=== PATIENT | male | born 1940 | race Caucasian/White ===

== ENCOUNTER → 2017-02-16 | Outpatient (CLI) | payer BC ==
[~2017-02-16] MED LIST: LISI5TAB3 PO; LRTUNK PO
[2017-02-16 12:41] LABS: BASO % 0.6 %; BASO ABS # 0.05 K/uL (0-0.2); COMPLETE YES; EOS % 2.5 %; HEMATOCRIT 49.3 % (42-52); IG% 1.7 %; LYMPH % 20.5 %; LYMPH ABS # 1.71 K/uL (1.2-3.4); MEAN CELL VOLUME 94.4 fL (80-100); MEAN CORPUSCULAR HEMOGLOBIN 33.1 pg (25-34); MEAN CORPUSCULAR HGB CONC 35.1 g/dl (32-36); MEAN PLATELET VOLUME 11.3 fL (7.4-10.4); NEUT % 65.7 %; PLATELET COUNT 226 K/uL (130-400); RED BLOOD COUNT 5.22 M/uL (4.7-6.1); WHITE BLOOD COUNT 8.33 K/uL (4.8-10.8)
[2017-02-16 12:59] LABS: ALT/SGPT 23 U/L (12-78); AST/SGOT 16 U/L (15-37); BLOOD UREA NITROGEN 17 mg/dl (7-18); BUN/CREATININE RATIO 18.3 (10-20); CALCIUM 8.9 mg/dl (8.5-10.1); CARBON DIOXIDE 28 mmol/L (21-32); CHLORIDE 105 mmol/L (98-107); CREATININE 0.93 mg/dl (0.60-1.40); GLUCOSE 109 mg/dl (70-99); POTASSIUM 4.1 mmol/L (3.5-5.1); SODIUM 138 mmol/L (136-145)
[2017-02-16 13:04] LABS: ALB/GLOB RATIO 1.2 (0.9-2); ALKALINE PHOSPHATASE 71 U/L (45-117); CHOLESTEROL 216 mg/dl (0-200); CHOLESTEROL/HDL RATIO 4.3; HDL CHOLESTEROL 50 mg/dl; TRIGLYCERIDES 114 mg/dl (0-150); VERY LOW DENSITY LIPOPROT CALC 23 mg/dl
[2017-02-16 13:09] LABS: ESTIMATED AVERAGE GLUCOSE 108 mg/dl; HA1C FLAG Normal (Normal)
== END | disposition home or self-care (01) ==
LOC: C.LABSPEC 12:12
PROVIDERS: ATTEND Internal Medicine
DX: R73.9 Hyperglycemia, unspecified (principal); E78.5 Hyperlipidemia, unspecified; I10 Essential (primary) hypertension

== ENCOUNTER → 2017-03-24 | Outpatient (CLI) | payer BC ==
[~2017-03-24] MED LIST changes: +BIMA0.01 OPB; +LISI10TA PO
== END | disposition home or self-care (01) ==
LOC: C.LABSPEC 14:54
PROVIDERS: ATTEND Internal Medicine
DX: Z12.11 Encounter for screening for malignant neoplasm of colon (principal)

== ENCOUNTER → 2017-04-19 | Day surgery (SDC) | payer BC ==
[2017-03-28 09:51] VITALS: Ht 175.3 cm; Wt 90.9 kg
--- NOTE | 2017-04-17 16:50 | History and Physical ---
History & Physical Date of Service Apr 17, 2017. History & Physical ADMISSION DATE: 04/19/2017 CHIEF COMPLAINT: 76-year-old male scheduled to undergo left cataract surgery on 2016. He is also scheduled for a right cataract surgery to be done on 2016 PRESENT ILLNESS: patient with decreased vision. He is treated for glaucoma. He has markedly decreased vision in the left eye he has had a prior accident. He was recently evaluated. He has bilateral cataracts. He is scheduled to undergo surgery on both eyes as noted above. Otherwise she is in good medical condition. He was just seen in the office for his preoperative evaluation on 04/14/2017. He denied any headache. No dizziness no lightheadedness. Decreased vision as noted. He does wear glasses. Denies any earache sore throat or neck pain. No chest pain. No shortness of breath. No abdominal pain no nausea no vomiting. He does have an umbilical hernia. Nontender. he does have urinary problems. He does have an enlarged prostate. He does have urinary frequency and urgency. No pain in his extremities. PAST MEDICAL HISTORY: * arterial hypertension. He treated and controlled * Glaucoma. Treated with Lumigan * Hyperglycemia * Osteoarthritis * Urinary frequency and nocturia * Compression fracture of T3. Underwent biopsy and kyphoplasty in 2007 * cholecystectomy in the remote past * Known umbilical hernia SOCIAL HISTORY: he is . Does not smoke. No excessive alcohol. 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 Well nourished. No acute distress.weight 213.8 pounds , height 66 inches, BMI 34.51. VITAL SIGNS : Blood Pressure : 122/84, pulse 80 and regular, temperature 98.5. SKIN : Warm and dry. No rash. HEENT :Glaucoma as noted. Wears glasses. Upper dentures. NECK : Supple. No adenopathy. No thyromegaly. No JVD. Normal carotid pulses. No carotid bruit. CHEST : Normal HEART: Regular heart sounds without any murmur rub or gallop. PMI not displaced. LUNGS: Clear. Normal breath sounds. ABDOMEN: Soft nontender. No organomegaly or masses. Good bowel sounds.Surgical scar. Umbilical hernia BACK: No spine or CVA tenderness. EXTREMITIES : No edema clubbing or cyanosis. osteoarthritic changes. Decreased right dorsalis pedis pulse. Decreased left dorsalis pedis pulse. Left posterior tibialis pulse is absent NEUROLOGICAL EXAMINATION: He is alert and oriented. No deficits. ASSESSMENT: * bilateral cataracts. Patient is scheduled for surgery on the left eye on and subsequently on the right eye on 05/10/2017 * Glaucoma * Arterial hypertension * Osteoarthritis * Dysuria and urinary frequency * Obesity PLAN: * continuing the same medications * As far as his urinary symptomatology he is now willing to try the Flomax. Decided to wait until he is done with his bilateral cataract surgery in order to avoid the possibility of an intraoperative floppy iris syndrome. * his condition is stable . I do not see any contraindication to his anticipated surgical procedure.
[~2017-04-19] VITALS: Ht 175.3 cm; Wt 90.9 kg
[~2017-04-19] MED LIST changes: +500ML BSS 0.3ML EPI 1:1000PF IRRIG ONE; +ACETAMINOPHEN 325 MG TAB PO PRN; +AMVISC PLUS 0.8ML SYRINGE INT OCU ONE; +ATROPINE SULFATE 0.1 MG/ML 5ML SYR IV PRN; +BSS FLUSH ONE; +EpHEDrine SULFATE INJ 50 MG/ML AMP IV PRN; +EpINEphrine INJ 1MG/ML AMP 1 MG/ML AMP ONE; +LACTATED RINGER'S 1000ML 500 ML IV SCH; +LIDOCAINE 3.5% OPH GEL PER APPLICATION CHARGE ONE; +LIDOCAINE HCL 1% MPF 2 ML VIAL ONE; -LISI5TAB3 PO; -LRTUNK PO; +MIDAZOLAM HCL 1 MG/ML 2ML VIAL ONE; +POVIDONE-IODINE OP SOLN 30 ML BTL ONE; +PROPARACAINE 0.5% OP SOLN PER DROP CHARGE OPL SCH; +TOBRAMYCIN/DEXAMETHASONE OPH OINT PER APPLN CHARGE ONE
[2017-04-19] MEDS: PHENYLEPHRINE HCL 2.5% OP SOLN PER DROP CHARGE OPL SCH ×2 (10:34→10:39)
[2017-04-19] MEDS: TROPICAMIDE 1% OP SOLN PER DROP CHARGE OPL SCH ×2 (10:35→10:40)
[2017-04-19] MEDS: CYCLOPENTOLATE HCL 1% OP SOLN PER DROP CHARGE OPL SCH ×2 (10:36→10:41)
[2017-04-19] MEDS: KETOROLAC 0.5% OP SOLN PER DROP CHARGE OPL SCH ×2 (10:37→10:42)
[2017-04-19] MEDS: GATIFLOXACIN OP SOLN PER DROP CHARGE OPL SCH ×2 (10:38→10:48)
--- NOTE | 2017-04-19 11:07 | History & Physical Bridge - [place] ---
H&P Re-Evaluation Bridge Note: I have examined the patient, reviewed the History & Physical and in the interval since the performance of the History & Physical I have noted the following changes of clinical significance: No changes noted
--- NOTE | 2017-04-19 11:51 | Discharge Instructions-SurgCtr ---
Discharge Instructions Date of Service Apr 19, 2017. Visit Reason for Visit: Cataract Left Eye Discharge Discharge Diagnosis / Problem: cataract Discharge Goals Goal(s): Improve function Activity Recommendations Activity Limitations: per Instructions/Follow-up section Anesthesia . Post Anesthesia Instructions: If you have had General Anesthesia or IV Sedation: * Do not drive today. * Resume driving when surgeon permits. * Do not make important decisions or sign legal documents today. * Call surgeon for: 1. Temperature elevations greater than 101 degrees F. 2. Uncontrollable pain. 3. Excessive bleeding. 4. Persistent nausea and vomiting. 5. Medication intolerance (nausea, vomiting or rash). * For nausea and vomiting use only clear liquids such as: tea, soda, bouillon until nausea subsides, then gradually increase diet as tolerated. * If you have any concerns or questions, call your surgeon's office. If physician is unavailable and it is an emergency, call 911 or go to the nearest emergency room. . Diet Recommendations Home Diet: resume previous diet Procedures Procedures Performed: Left Cataract Phacoemulsification With Intraocular Lens Implant Pending Studies Studies pending at discharge: no Medical Emergencies . Who to Call and When: Medical Emergencies: If at any time you feel your situation is an emergency, please call 911 immediately. . Non-Emergent Contact Non-Emergency issues call your: Patient Registration Representative . . "Provider Documentation" section prepared by Ahmet Segura. .
--- NOTE | 2017-04-19 11:52 | [facility] Operative Report ---
Operative Report Date of Service Apr 19, 2017. Operative Report 1. PREOPERATIVE DIAGNOSIS: Cataract of the left eye. 2. POSTOPERATIVE DIAGNOSIS: Same. 3. PROCEDURE: Phacoemulsification with intraocular lens implantation of the left eye. SURGEON: Dr. Ahmet Segura. ANESTHESIA: Topical Lidocaine gel, 1% Non- Preserved intracameral Lidocaine, and monitored intravenous sedation. INDICATIONS FOR THE PROCEDURE: The patient is a 76 - year-old male with a history of cataract of the left eye causing significant visual impairment. The details of the proposed procedure were explained to the patient who asked appropriate questions and following discussion of all risks, benefits and alternatives agreed to have the procedure done. 4. OPERATION AND FINDINGS: DESCRIPTION OF PROCEDURE: After informed consent was obtained, the patient was brought to the Operating Room at the [facility]. The patient was placed in a supine position and then the left eye was prepped and draped in the usual sterile fashion for intraocular surgery. A drop of topical Lidocaine gel was placed in the operative eye. A wire lid speculum was then placed in the fornices. A corneal paracentesis was then created temporally. The Non-Preserved Lidocaine was then instilled into the anterior chamber. The anterior chamber was then pressurized with viscoelastic. A 2.0 mm clear corneal incision was then created temporally. A cystotome was inserted into the anterior chamber and used to create a tear in the anterior lens capsule. This capsular tear was then used to create a small flap and the flap was dragged in a counterclockwise direction in order to create a continuous curvilinear capsulorrhexis. Hydrodissection was accomplished with balanced salt solution. Phacoemulsification of the lens nucleus was then performed in a standard [id number] technique. The phaco time was 25 seconds with an average power of 19 %. The remaining cortical material was removed using irrigation aspiration. The capsular bag was then filled with viscoelastic. A Bausch [employer] Lomb MI60L +29.0 diopters lens was then loaded into the injector and injected into the capsular bag. The remaining viscoelastic was removed with the irrigation aspiration handpiece. The wound was hydrated and then checked and found to be watertight. The intraocular pressure was checked and found to be adequate. The wire lid speculum was removed and the patient's face was cleaned and dried. TobraDex ointment was placed in the inferior fornix. The patient was discharged to the Recovery Room having tolerated the procedure well. There were no complications. The patient will be seen tomorrow in the office for follow-up. I attest to the content of the Intraoperative Record and any orders documented therein. Any exceptions are noted below.
[2017-04-19 12:02] VITALS: TEMP 36.8
--- NOTE | 2017-04-19 12:18 | Anesthesia Progress Nt - [facility] ---
Anesthesia Post Op Note Date & Time Apr 19, 2017 at 12:18 Vital Signs Pain Intensity: 0 Vital Signs Past 12 Hours Date Time Temp Pulse Resp B/P (MAP) Pulse Ox O2 Delivery O2 Flow Rate FiO2 04/19/17 12:02 36.8 74 16 116/83 (94) 94 Room Air 04/19/17 10:31 36.7 67 18 118/80 (93) 94 Room Air Notes Mental Status: alert / awake / arousable, participated in evaluation Pt Amnestic to Procedure: Yes Nausea / Vomiting: adequately controlled Pain: adequately controlled Airway Patency, RR, SpO2: stable & adequate BP & HR: stable & adequate Hydration State: stable & adequate Anesthetic Complications: no major complications apparent
[2017-04-19 12:26] VITALS: BP 135/89; PULSE 66; O2SAT 96
== END | disposition home or self-care (01) ==
LOC: X.SURG 09:48
PROVIDERS: ATTEND Ophthalmology
DX: H26.9 Unspecified cataract (principal); M19.90 Unspecified osteoarthritis, unspecified site; I10 Essential (primary) hypertension; H40.9 Unspecified glaucoma; Z90.49 Acquired absence of other specified parts of digestive tract; Z79.82 Long term (current) use of aspirin; E66.9 Obesity, unspecified; Z68.34 Body mass index [BMI] 34.0-34.9, adult; Z90.89 Acquired absence of other organs

== ENCOUNTER → 2017-05-10 | Day surgery (SDC) | payer BC ==
[2017-04-26 14:08] VITALS: Ht 175.3 cm; Wt 90.9 kg
[~2017-05-10] VITALS: Ht 175.3 cm; Wt 90.9 kg
[~2017-05-10] MED LIST changes: +OCUCOAT 1 ML SOLN IO ONE; -PROPARACAINE 0.5% OP SOLN PER DROP CHARGE OPL SCH; +PROPARACAINE 0.5% OP SOLN PER DROP CHARGE OPR SCH
[2017-05-10] MEDS: PHENYLEPHRINE HCL 2.5% OP SOLN PER DROP CHARGE OPR SCH ×2 (10:03→10:15)
[2017-05-10] MEDS: TROPICAMIDE 1% OP SOLN PER DROP CHARGE OPR SCH ×2 (10:04→10:15)
[2017-05-10] MEDS: CYCLOPENTOLATE HCL 1% OP SOLN PER DROP CHARGE OPR SCH ×2 (10:05→10:16)
[2017-05-10] MEDS: KETOROLAC 0.5% OP SOLN PER DROP CHARGE OPR SCH ×2 (10:06→10:11)
[2017-05-10] MEDS: GATIFLOXACIN OP SOLN PER DROP CHARGE OPR SCH ×2 (10:07→10:19)
--- NOTE | 2017-05-10 11:13 | Discharge Instructions-SurgCtr ---
Discharge Instructions Date of Service May 10, 2017. Visit Reason for Visit: Cataract Right Eye Discharge Discharge Diagnosis / Problem: cataract Discharge Goals Goal(s): Improve function Activity Recommendations Activity Limitations: per Instructions/Follow-up section Anesthesia . Post Anesthesia Instructions: If you have had General Anesthesia or IV Sedation: * Do not drive today. * Resume driving when surgeon permits. * Do not make important decisions or sign legal documents today. * Call surgeon for: 1. Temperature elevations greater than 101 degrees F. 2. Uncontrollable pain. 3. Excessive bleeding. 4. Persistent nausea and vomiting. 5. Medication intolerance (nausea, vomiting or rash). * For nausea and vomiting use only clear liquids such as: tea, soda, bouillon until nausea subsides, then gradually increase diet as tolerated. * If you have any concerns or questions, call your surgeon's office. If physician is unavailable and it is an emergency, call 911 or go to the nearest emergency room. . Diet Recommendations Home Diet: resume previous diet Pending Studies Studies pending at discharge: no Medical Emergencies . Who to Call and When: Medical Emergencies: If at any time you feel your situation is an emergency, please call 911 immediately. . Non-Emergent Contact Non-Emergency issues call your: Local Delivery Truck Driver . . "Provider Documentation" section prepared by Ahmet Segura. .
--- NOTE | 2017-05-10 11:14 | [facility] Operative Report ---
Operative Report Date of Service May 10, 2017. Operative Report 1. PREOPERATIVE DIAGNOSIS: Cataract of the right eye. 2. POSTOPERATIVE DIAGNOSIS: Same. 3. PROCEDURE: Phacoemulsification with intraocular lens implantation of the right eye. SURGEON: Dr. Ahmet Segura. ANESTHESIA: Topical Lidocaine gel, 1% Non- Preserved intracameral Lidocaine, and monitored intravenous sedation. INDICATIONS FOR THE PROCEDURE: The patient is a 76 - year-old male with a history of cataract of the right eye causing significant visual impairment. The details of the proposed procedure were explained to the patient who asked appropriate questions and following discussion of all risks, benefits and alternatives agreed to have the procedure done. 4. OPERATION AND FINDINGS: DESCRIPTION OF PROCEDURE: After informed consent was obtained, the patient was brought to the Operating Room at the [facility]. The patient was placed in a supine position and then the right eye was prepped and draped in the usual sterile fashion for intraocular surgery. A drop of topical Lidocaine gel was placed in the operative eye. A wire lid speculum was then placed in the fornices. A corneal paracentesis was then created temporally. The Non-Preserved Lidocaine was then instilled into the anterior chamber. The anterior chamber was then pressurized with viscoelastic. A 2.0 mm clear corneal incision was then created temporally. A cystotome was inserted into the anterior chamber and used to create a tear in the anterior lens capsule. This capsular tear was then used to create a small flap and the flap was dragged in a counterclockwise direction in order to create a continuous curvilinear capsulorrhexis. Hydrodissection was accomplished with balanced salt solution. Phacoemulsification of the lens nucleus was then performed in a standard [id number]-tfk-[id number] technique. The phaco time was 26 seconds with an average power of 12 %. The remaining cortical material was removed using irrigation aspiration. The capsular bag was then filled with viscoelastic. A Bausch & Lomb MI60L +20.0 diopters lens was then loaded into the injector and injected into the capsular bag. The remaining viscoelastic was removed with the irrigation aspiration handpiece. The wound was hydrated and then checked and found to be watertight. The intraocular pressure was checked and found to be adequate. The wire lid speculum was removed and the patient's face was cleaned and dried. TobraDex ointment was placed in the inferior fornix. The patient was discharged to the Recovery Room having tolerated the procedure well. There were no complications. The patient will be seen tomorrow in the office for follow-up. I attest to the content of the Intraoperative Record and any orders documented therein. Any exceptions are noted below.
--- NOTE | 2017-05-10 11:41 | Anesthesia Progress Nt - [facility] ---
Anesthesia Post Op Note Date & Time May 10, 2017 at 11:41 Vital Signs Pain Intensity: 0 Vital Signs Past 12 Hours Date Time Temp Pulse Resp B/P (MAP) Pulse Ox O2 Delivery O2 Flow Rate FiO2 05/10/17 11:12 36.7 62 16 113/79 (90) 97 Room Air 05/10/17 09:48 36.8 80 16 130/88 (102) 96 Room Air Notes Mental Status: alert / awake / arousable, participated in evaluation Pt Amnestic to Procedure: Yes Nausea / Vomiting: adequately controlled Pain: adequately controlled Airway Patency, RR, SpO2: stable & adequate BP & HR: stable & adequate Hydration State: stable & adequate Anesthetic Complications: no major complications apparent
[2017-05-10 11:48] VITALS: BP 115/83; PULSE 64; TEMP 36.6; O2SAT 96
== END | disposition home or self-care (01) ==
LOC: X.SURG 08:39
PROVIDERS: ATTEND Ophthalmology
DX: H26.9 Unspecified cataract (principal); H40.9 Unspecified glaucoma; I10 Essential (primary) hypertension; K21.9 Gastro-esophageal reflux disease without esophagitis; E66.9 Obesity, unspecified; M19.90 Unspecified osteoarthritis, unspecified site; Z79.82 Long term (current) use of aspirin; Z79.899 Other long term (current) drug therapy

== ENCOUNTER → 2017-08-17 | Outpatient (CLI) | payer BC ==
[~2017-08-17] MED LIST changes: -500ML BSS 0.3ML EPI 1:1000PF IRRIG ONE; -ACETAMINOPHEN 325 MG TAB PO PRN; -AMVISC PLUS 0.8ML SYRINGE INT OCU ONE; -ATROPINE SULFATE 0.1 MG/ML 5ML SYR IV PRN; -BSS FLUSH ONE; -EpHEDrine SULFATE INJ 50 MG/ML AMP IV PRN; -EpINEphrine INJ 1MG/ML AMP 1 MG/ML AMP ONE; -LACTATED RINGER'S 1000ML 500 ML IV SCH; -LIDOCAINE 3.5% OPH GEL PER APPLICATION CHARGE ONE; -LIDOCAINE HCL 1% MPF 2 ML VIAL ONE; -MIDAZOLAM HCL 1 MG/ML 2ML VIAL ONE; -OCUCOAT 1 ML SOLN IO ONE; -POVIDONE-IODINE OP SOLN 30 ML BTL ONE; -PROPARACAINE 0.5% OP SOLN PER DROP CHARGE OPR SCH; -TOBRAMYCIN/DEXAMETHASONE OPH OINT PER APPLN CHARGE ONE
[2017-08-17 13:26] LABS: BLOOD UREA NITROGEN 19 mg/dl (7-18); CALCIUM 8.9 mg/dl (8.5-10.1); CARBON DIOXIDE 29 mmol/L (21-32); CHOLESTEROL 206 mg/dl (0-200); CREATININE 0.98 mg/dl (0.60-1.40); GLUCOSE 100 mg/dl (70-99); POTASSIUM 4.2 mmol/L (3.5-5.1); SODIUM 136 mmol/L (136-145)
[2017-08-17 13:35] LABS: HEMOGLOBIN A1C 5.6 % (4.5-5.6)
[2017-08-17 13:36] LABS: LDL CHOLESTEROL (DIRECT) 134 mg/dl
== END | disposition home or self-care (01) ==
LOC: C.LABSPEC 12:45
PROVIDERS: ATTEND Internal Medicine
DX: I10 Essential (primary) hypertension (principal); E78.5 Hyperlipidemia, unspecified; R73.9 Hyperglycemia, unspecified; R53.83 Other fatigue

== ENCOUNTER 2023-01-11 06:45 | Observation (INO) ==
--- NOTE | 2023-01-11 07:23 | History & Physical Bridge Note ---
Date of Service January 11, 2023 History & Physical Bridge Note I have examined the patient, reviewed the History & Physical and in the interval since the performance of the History & Physical I have noted the following changes of clinical significance: no changes noted
--- NOTE | 2023-01-11 07:24 | Pre Anesthesia Assessment ---
Date of Service January 11, 2023 Pre Sedation Assessment Cardiovascular RRR, no murmur, no edema Respiratory normal respiratory effort, lungs clear to auscultation Pre-Sedation Airway Assessment Smoking Status: Never smoker Hx Sleep Apnea: No Hx Difficult Intubation: No Short, Thick Neck: No Thyromental Distance: > or= 3.5 Finger Breadths Oral Cavity: + WNL Mallampati Class: III ASA: ASA3 Procedure Planning Contraindications for Sedation: none Current Medications Reviewed: Yes Notes The planned sedation has been discussed with the patient. Informed Consent was obtained. I have identified the patient, determined the appropriateness of sedation and have assessed the patient immediately prior to the procedure. All medicine(s) and interventions are by my order.
[2023-01-11] MEDS ORDERED: HEPARIN (PORCINE) 1000 UNIT/ML 10 ML (CATH LAB USE ONLY) ONE ×2 (07:38→08:54)
[2023-01-11] MEDS ORDERED: MIDAZOLAM HCL 1 MG/ML 2ML VIAL ONE ×2 (07:38→08:56)
[2023-01-11] MEDS ORDERED: niCARdipine HCL INJ 2.5 MG/ML 10 ML AMP ONE (07:38)
[2023-01-11] MEDS ORDERED: fentaNYL citrate PF 100 MCG/2 ML VIAL ONE (07:39)
[2023-01-11] MEDS ORDERED: NITROGLYCERIN/D5W 100MCG/ML 20ML SYR ONE (07:39)
--- NOTE | 2023-01-11 10:33 | Post Anesthesia Assessment ---
Date of Service January 11, 2023 Post Sedation Assessment Vital Signs Temp Pulse Resp BP Pulse Ox O2 Del Method 01/11/23 10:05 52 L 18 136/75 96 Room Air 01/11/23 06:57 98.2 F 69 18 120/91 97 Room Air Recovery Score Activity: Moves 4 extremities Respiration: Deep Breath/Cough Circulation: +/-20% PreAnes Value Consciousness: Fully Awake Oxygen Saturation: > 92% On Room Air Post Anesthesia Score: 10 Discharge Sedation Level of Care: Fast Track Phase II Post Sedation Plan On clinical assessment, the patient appears to have tolerated the sedation without complications. Patient is recovering as anticipated. Patient will continue to be monitored by nursing and may be discharged when sedation discharge criteria are met per below protocol. Upon Completions of procedure up to 15 minutes continue every 5 minute vital signs and the P.A.R. score; then discharge to a Phase I or Fast Track to Phase II per the following guidelines: * Discharge Patient to appropriate Phase II area if PAR is 8 or greater or return to pre- procedure baseline. The post - procedure orders will be as directed. * If PAR score is less than 8 or not return to pre-procedure baseline then patient will follow Phase I monitoring till PAR is reached for Phase II. The Phase I may be done in procedure room or may call to secure a Phase I area. * If naloxone or flumazenil are used for reversal, hold in Phase I for continued monitoring from when last reversal dose was given for a minimum of 60 minutes or longer pending the nurse and/or physician discretion of patient condition before discharge to Phase II. Please call the Sedation Physician to re-evaluate and complete post-note for discharge to Phase II area. Do NOT discharge from procedure sedation or Phase 1 until post- sedation evaluation note is complete by procedure /sedation MD Sedation Discharge Instructions to be given to the patient at discharge to home.
--- NOTE | 2023-01-11 10:36 | Cardiac Catheterization ---
[facility] Data: Trauma Nurse Cardiac Status Clinical evaluation leading to the procedure CAD Presenation: Positive Stress Test Anginal Classification: CCS III Diagnostic Physicians Name: Paul Jamison MD Closure Device Recommendations: PCI without planned CABG Cardiac Cath Procedure Full Procedure Date January 11, 2023 Pre-Procedure Diagnosis Pre-Procedure Diagnosis: Positive Stress Test AUC Score AUC Score: 7 Post-Procedure Diagnosis Post-Procedure Diagnosis: Severe CAD, Successful PCI and Normal Intracardiac Pressures Procedure(s) Performed Procedure(s) Performed: Coronary Angiography, Left Heart Cath, Drug Eluting Stent, IVUS and Procedure (Intravascular lithotripsy) In Home Caregiver Paul Jamison MD Video Software Engineer(s) [place] Estimated Blood Loss Estimated Blood Loss: 10 Medication(s) Medication(s): Fentanyl, Heparin, Lidocaine 1%, Nicardipine, Nitroglycerin and Versed Summary of Findings Indication: Abnormal stress test, accelerating angina Access: 6 Fr right radial artery Catheters: [place], EBU 3.5 guide Findings: LM -normal caliber, 20% distal stenosis LAD -medium caliber, heavily calcified, 98% proximal stenosis with diffuse severe disease extending in the midsegment. Latemid and distal vessel with luminal irregularities and CHEPE II flow. LAD extends to apex. D1 100% ostial occlusion and fills distally retrograde via left to left collaterals. Ramusmedium caliber, 95% mid segment stenosis before bifurcation Circumflex -medium caliber, 20 to 30% mid segment. Medium OM 2 with luminal irregularities. RCA -dominant, large caliber, 20 to 30% ostial, distal luminal irregularities and 30% stenosis at bifurcation with PDA. RPDA with diffuse 20% disease. Small distal right PLB with focal 70% stenosis LVEDP -10 -- PCI -- Antithrombotic therapy: Heparin, clopidogrel Procedure: Left main cannulated with EBU 3.5 guide Pre-procedure flow CHEPE 2 Support Engineer 50 wire passed across lesion into distal vessel With the aid of a telescope support catheter eventually able to pass balloons to mid segment after repeated inflations with 1.5, 2.0 and 2.5 balloons. Mei IVUS catheter placed to mid LAD for vessel sizing. Revealed heavily calcified disease extending back to LAD ostium. Mild calcified disease in distal left main. Proximal to mid LAD further predilated with shockwave intravascular lithotripsy (3.0 balloon, 70 pulses) Dilated lesion stented with 3.0 x 38 mm [place] drug-eluting stent Stent post-dilated with 3.5 noncompliant balloon IC vasodilators administered for spasm Post procedure CHEPE 3 flow, stent well expanded with minimal residual stenosis and no apparent cardiac complications. Support Engineer 50 wire removed from LAD and redirected into ramus and across mid segment stenosis Mid ramus stenosis dilated with 2.5 balloon Ramus stented with 2.75 x 15 mm Independence drug-eluting stent across bifurcation and takeoff of superior branch Stent postdilated with stent balloon Post procedure CHEPE 3 flow, stent well expanded with minimal residual stenosis and no apparent cardiac complications. Arterial Closure: TR band Summary: 1. Severe multi-vessel coronary artery disease -98% heavily calcified proximal to mid LAD disease with CHEPE II distal flow 95% mid ramus 100% chronically occluded small D1 fills distally via left to left collaterals 70% small RPLB 2. Normal intracardiac filling pressure 3. Successful PCI of proximal to mid LAD with intravascular lithotripsy and single drug-eluting stent (3.0 x 38 mm [place]; postdilated with 3.5 NC. 4. Successful PCI of mid ramus with single drug-eluting stent (2.75 x 15 mm [place]). Recommendations: To PCU for continued monitoring Loaded with clopidogrel 600 mg in Trauma Nurse Continue dual-antiplatelet therapy for at least 6 months, consider extended P2Y12 with multivessel stenting Continue statin, and ASCVD risk factor modification Consult cardiac Rehab Hemodynamics Rest Ao:: 93/67/79 Final Ao: 114/66/87 LV: 98/10 Recommendations Recommendations: PCI without planned CABG Specimens Specimens: None Radiation Exposure (mGy) 4950 Contrast (mls) 130 Anesthesia Moderate 9083-4913 Procedural Complication(s) None Disposition PCU I attest to the content of the Intraoperative Record and any orders documented therein. Any exceptions are noted below. Syncing.NetG Card Cath Procedure Codes Cardiac Catheterization Procedure 1: Cardiovascular Cath Procedures: 81321 Coronaries and LHC (+/-LV) Therapeutic Services & Ancillary Procedure 1: Cardiovascular Tx and Anc Procedures: 18891 IV Ultrasound (Coronary or Graft) Moderate Sedation Procedure 1: Sedation/Anesthesia: 85079 Mod Sedation by the same physician;Init15 Min Child Age 5 & Up Procedure 2: Sedation/Anesthesia: 12887 Mod Sedation by the same physician; Ea [id number] Minutes Stenting Procedure 1: Cardiovascular Stent Procedures: 57686 Perc transcatheter placement of intracoronary stent(s), with ang Procedure 2: Cardiovascular Stent Procedures: 29159 Ea addl branch of a major coronary artery PG Care Time/CCT Total # of Minutes Spent Total Time Spent with Patient: Total time spent is greater than 50% in coordination of care (as documented) at patient's floor/unit and/or counseling patient:
[2023-01-11] MEDS ORDERED: ONDANSETRON INJ 2 MG/ML 2 ML VIAL IV PRN (10:38)
[2023-01-11] MEDS ORDERED: ACETAMINOPHEN 325 MG TAB PO PRN (10:38)
[2023-01-11] MEDS ORDERED: NITROGLYCERIN SL 0.4 MG/TAB TAB SL PRN (10:38)
[2023-01-11] MEDS ORDERED: CLOPIDOGREL BISULFATE 300 MG TAB ONE (10:43)
[2023-01-11] MEDS ORDERED: diphenhydrAMINE Capsule 25 MG CAP PO PRN (10:46)
[2023-01-11] MEDS: SODIUM CHLORIDE 0.9% 1000ML 1,000 ML IV SCH ×2 (13:32→19:03)
--- NOTE | 2023-01-11 16:09 | Electrocardiogram Report ---
Test Reason : Blood Pressure : / mmHG Vent. Rate : 052 BPM Atrial Rate : 052 BPM P-R Int : 218 ms QRS Dur : 106 ms QT Int : 440 ms P-R-T Axes : 056 006 040 degrees QTc Int : 409 ms Sinus bradycardia with sinus arrhythmia with 1st degree A-V block Otherwise normal ECG When compared with ECG of 26-SEP-2018 23:18, ND interval has increased Confirmed by Huber Gastelum ([id number]) on 01/11/2023 4:09:05 PM Referred By: Gregg Ellison Confirmed By:Huber Gastelum
[2023-01-11] MEDS ORDERED: BIMATOPROST 0.01% OP SOLN 2.5 ML BTL OPB SCH (21:00)
[2023-01-11] MEDS ORDERED: TAMSULOSIN HCL 0.4 MG CAP PO SCH (21:00)
[2023-01-12] MEDS: SODIUM CHLORIDE 0.9% 1000ML 1,000 ML IV SCH (04:08)
[2023-01-12] MEDS ORDERED: CLOPIDOGREL BISULFATE 75 MG TAB PO SCH (09:00)
[2023-01-12] MEDS ORDERED: ATORVASTATIN 40 MG TAB PO SCH (09:00)
[2023-01-12] MEDS ORDERED: lisinopril 10 MG TAB PO SCH (09:00)
[2023-01-12] MEDS ORDERED: ASPIRIN 81 MG ECTAB PO SCH (09:00)
[2023-01-12] MEDS ORDERED: FINASTERIDE 5 MG TAB PO SCH (09:00)
--- NOTE | 2023-01-12 09:58 | Discharge Summary ---
Date of Service January 12, 2023 Admission HPI Per Admitting Provider Pt is a pleasant 82 year old man admitted on 01/11/23 after cardiac cath with PCI. Cardiac cath performed in setting of abnormal stress test and anginal symptoms. Cardiac cath: 1. Severe multi-vessel coronary artery disease -98% heavily calcified proximal to mid LAD disease with CHEPE II distal flow 95% mid ramus 100% chronically occluded small D1 fills distally via left to left collaterals 70% small RPLB 2. Normal intracardiac filling pressure 3. Successful PCI of proximal to mid LAD with intravascular lithotripsy and single drug-eluting stent (3.0 x 38 mm Salvatore; postdilated with 3.5 NC. 4. Successful PCI of mid ramus with single drug-eluting stent (2.75 x 15 mm Fifield). Discharge Data Procedures Performed Operation Date: 01/11/23 08:00 Actual Procedures p Cineradiography w/Routine Exam - Richard Jamison MD s Cath, Left with Cors and Vent - Richard Jamison MD s IVUS Coronary Single Vessel - Richard Jamison MD s Drug Eluting Stent SGl Vessel - Richard Jamison MD s Drug Eluting Stent each ADDTL Vessel - Richard Jamison MD s Coronary Lithotripsy - Richard Jamison MD Hospital Course (1) Coronary artery disease: Plan --severe multivessel CAD --post successful PCI of proximal to mid LAD with intravascular lithotripsy and single drug-eluting stent (3.0 x 38 mm Fifield; postdilated with 3.5 NC --post successful PCI of mid ramus with single drug-eluting stent (2.75 x 15 mm Salvatore) 2. Hypertension 3. Dyslipidemia Patient underwent cardiac catheterization with successful PCI of mid LAD and mid ramus yesterday with Dr. Jamison. Doing well today. Has been up walking around room without anginal symptoms. No orthopnea or PND. No issues at right radial access site. Recommend DAPT for minimum 6 months, consider extended DAPT given multivessel stenting. Followup with primary marine insurance claim examiner, Dr. Ellison, later this month as scheduled. Coding Level of Care Code 70147 IN/OBS DISCH 30 MIN/LESS Diagnoses Coronary artery disease I25.10
--- NOTE | 2023-01-14 12:37 | Electrocardiogram Report ---
Test Reason : Blood Pressure : / mmHG Vent. Rate : 057 BPM Atrial Rate : 057 BPM P-R Int : 218 ms QRS Dur : 100 ms QT Int : 444 ms P-R-T Axes : 030 -07 026 degrees QTc Int : 432 ms Sinus bradycardia with 1st degree A-V block Otherwise normal ECG When compared with ECG of 26-SEP-2018 23:18, UT interval has increased Confirmed by Huber Gastelum ([id number]) on 01/14/2023 12:36:57 PM Referred By: Gregg Ellison Confirmed By:Huber Gastelum
== END 2023-01-12 10:43 | disposition home or self-care (01) ==
LOC: 2S 06:45 → CC 06:45